=== PATIENT | male | born 1985 | race Caucasian/White ===

== ENCOUNTER 2018-03-07 18:14 | Emergency (ER) | payer MEDICAID ==
[~2018-03-07] VITALS: Ht 177.8 cm; Wt 83.7 kg
[2018-03-07] MEDS ORDERED: HYDROcodone/acetaminophen 5mg/325mg tablet PO ONE (20:10)
[2018-03-07] MEDS ORDERED: ibuprofen tablet 400 MG TABLET PO ONE (20:10)
[2018-03-07] MEDS ORDERED: ondansetron 4mg rapidly disintigrating tab PO ONE (20:10)
[2018-03-07] MEDS ORDERED: ACET-2615 PO (20:38)
[2018-03-07] MEDS ORDERED: HYDR-3965 PO (20:38)
[2018-03-07] MEDS ORDERED: IBUP-1984 PO (20:38)
[2018-03-07 20:40] VITALS: BP 129/76
== END 2018-03-07 20:57 | disposition home or self-care (01) ==
LOC: ER 18:14
DX: S22.32XA Fracture of one rib, left side, initial encounter for closed fracture (principal); S43.102A Unspecified dislocation of left acromioclavicular joint, initial encounter; F12.90 Cannabis use, unspecified, uncomplicated; Z79.899 Other long term (current) drug therapy; V89.2XXA Person injured in unspecified motor-vehicle accident, traffic, initial encounter; Y93.89 Activity, other specified; Y92.410 Unspecified street and highway as the place of occurrence of the external cause; Y99.8 Other external cause status
CPT/HCPCS: 71045; 73030; 99284

== ENCOUNTER 2018-04-16 13:00 | Outpatient (CLI) | payer MEDICAID ==
[2018-04-16 12:59] VITALS: BP 141/93
== END 2018-04-16 13:46 | disposition home or self-care (01) ==
LOC: ORTHO 13:00
PROVIDERS: ATTEND Nurse Practitioner Family
DX: S43.142A Inferior dislocation of left acromioclavicular joint, initial encounter (principal); F17.200 Nicotine dependence, unspecified, uncomplicated; F12.90 Cannabis use, unspecified, uncomplicated; Z98.890 Other specified postprocedural states; V89.2XXA Person injured in unspecified motor-vehicle accident, traffic, initial encounter; Y93.89 Activity, other specified; Y92.89 Other specified places as the place of occurrence of the external cause; Y99.8 Other external cause status
CPT/HCPCS: 73000; 99213

== ENCOUNTER 2018-07-02 14:42 | Outpatient (CLI) | payer MEDICAID ==
[2018-07-02 14:37] VITALS: BP 128/83
== END 2018-07-02 16:53 | disposition home or self-care (01) ==
LOC: ORTHO 14:42
PROVIDERS: ATTEND Nurse Practitioner Family
DX: M24.812 Other specific joint derangements of left shoulder, not elsewhere classified (principal); M47.814 Spondylosis without myelopathy or radiculopathy, thoracic region
CPT/HCPCS: 73000; 99213

== ENCOUNTER 2019-06-06 22:32 | Emergency (ER) | payer MEDICAID ==
[~2019-06-06] VITALS: Ht 177.8 cm; Wt 86.4 kg
[2019-06-06 22:36] VITALS: BP 105/80
== END 2019-06-07 00:45 | disposition home or self-care (01) ==
LOC: ER 22:32
DX: M79.642 Pain in left hand (principal); F12.90 Cannabis use, unspecified, uncomplicated; Z72.89 Other problems related to lifestyle
CPT/HCPCS: 73130; 99283

== ENCOUNTER 2021-08-24 13:42 | Emergency (ER) | payer MEDICAID ==
[~2021-08-24] VITALS: Ht 180.3 cm; Wt 95.5 kg
[2021-08-24 14:05] VITALS: BP 114/60
[2021-08-24] MEDS ORDERED: morphine 4 MG/ML inj SYRINge IV ONE ×2 (14:45→17:05)
--- NOTE | 2021-08-24 16:10 | NUR ---
PT MOVED FROM [facility] TO MAIN ER ROOM 12. REPORT RECIEVED FROM [facility] NURSE
[2021-08-24] MEDS ORDERED: LIDO700A32 TOP ×3 (16:35→16:39)
[2021-08-24] MEDS ORDERED: HYDR-3965 PO ×3 (16:35→16:39)
== END 2021-08-24 17:33 | disposition home or self-care (01) ==
LOC: ER 13:44
DX: S42.122A Displaced fracture of acromial process, left shoulder, initial encounter for closed fracture (principal); S43.102A Unspecified dislocation of left acromioclavicular joint, initial encounter; R07.81 Pleurodynia; M25.511 Pain in right shoulder; F12.90 Cannabis use, unspecified, uncomplicated; Z98.890 Other specified postprocedural states; Z72.89 Other problems related to lifestyle; Z79.899 Other long term (current) drug therapy; V99.XXXA Unspecified transport accident, initial encounter; Y93.89 Activity, other specified; Y92.89 Other specified places as the place of occurrence of the external cause; Y99.8 Other external cause status
CPT/HCPCS: 70450; 71250; 73030; 74176; 96374; 96376; 99284; J2270

== ENCOUNTER 2021-12-15 01:41 | Emergency (ER) | payer MEDICAID ==
[~2021-12-15] VITALS: Ht 177.8 cm; Wt 93.2 kg
[~2021-12-15 01:41] MED LIST: HYDR-3965 PO; LIDO700A32 TOP
[2021-12-15] MEDS ORDERED: LIDOcaine 1% W/epiNEPHrine 1:100,000 20ml vial SQ ONE (01:50)
[2021-12-15] MEDS ORDERED: LIDOcaine 1% w/EPI 1:100,000 30ml vial (MDV) IJ ONE (01:55)
[2021-12-15] MEDS ORDERED: AMOX-580 PO (02:02)
[2021-12-15] MEDS ORDERED: amox tr/potassium clavulanate 875/125mg TAB PO ONE (02:05)
[2021-12-15 02:30] VITALS: BP 120/80
== END 2021-12-15 02:35 | disposition home or self-care (01) ==
LOC: ER 01:41
DX: S60.552A Superficial foreign body of left hand, initial encounter (principal); F17.200 Nicotine dependence, unspecified, uncomplicated; F12.10 Cannabis abuse, uncomplicated; Z79.899 Other long term (current) drug therapy; X58.XXXA Exposure to other specified factors, initial encounter; Y93.89 Activity, other specified; Y92.89 Other specified places as the place of occurrence of the external cause; Y99.8 Other external cause status
CPT/HCPCS: 99284

== ENCOUNTER 2021-12-19 15:16 | Emergency (ER) | payer MEDICAID ==
[~2021-12-19] VITALS: Ht 177.8 cm; Wt 95.5 kg
[~2021-12-19 15:16] MED LIST changes: +AMOX-580 PO
[2021-12-19 16:32] VITALS: BP 138/90
== END 2021-12-19 18:47 | disposition left against medical advice (07) ==
LOC: ER 15:16
DX: N50.811 Right testicular pain (principal); N50.812 Left testicular pain; F12.90 Cannabis use, unspecified, uncomplicated; Z72.89 Other problems related to lifestyle; Z98.890 Other specified postprocedural states; Z79.2 Long term (current) use of antibiotics; Z79.899 Other long term (current) drug therapy
CPT/HCPCS: 99281